=== PATIENT | female | born 1975 | race Caucasian/White ===

== ENCOUNTER 2023-01-20 11:02 | Outpatient (AMB) | payer OTHER, SELFPAY ==
--- NOTE | 2023-01-20 11:16 | A.OFFVIS_ITS ---
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 States she has intermittent pain on her left IP joint. States she thinks its a cyst that started to grow. She has no lumps but has discomfort with gripping and pinching motion. Denies recent injury, numbness, tingling or locking of fingers. Hx of cyst removal in right pinky about 10 yrs ago. 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 She complains of pain in the ulnar aspect of the left thumb IP, worse with pinching or gripping activities. She says her pain began last summer after excess gardening. She says This has not been bothering her lately as she has not been in the garden She denies feeling a lump there, however she wants to know if this may be a cyst as she has a hx of cyst removal from her right small finger in ~2012. She denies any numbness, tingling, locking, or injury. 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 Review of Systems Const All systems reviewed & are unremarkable except as noted in HPI and below Physical Exam Vital Signs: BMI result Body Mass Index 21.3 Const General: cooperative, healthy appearing and no acute distress Orientation/consciousness: patient oriented x3 HEENT Head: Yes normocephalic and Yes atraumatic Eyes EOM: EOMs intact bilaterally Resp Effort & Inspection: normal respiratory effort and able to speak in complete sentences Cardio Jugular venous distension: no JVD Skin General skin exam: turgor normal Rashes: no rashes Neuro General: patient oriented x3 Extrem Other: Evaluation of Left Upper Extremity: The patient is alert, oriented, and in no acute distress Neuro: Median, Ulnar, Radial nerves motor and sensory intact and sensation is normal to the tips of all digits Vascular: Cap refill brisk ROM: She can make a fist and extend all her digits No locking or catching. Skin: No lacerations or abrasions. General: No Ecchymosis. No Erythema or evidence of infection. Regarding her left thumb: She showed me that she was having most of her symptoms along the ulnar aspect of the left thumb IP joint. I did not appreciate any cyst or other masses in this area, and neither did she. The IP joint has good active flexion and extension without pain. No locking or catching. The radial and ulnar collateral ligaments of the IP joint are both stable and she had no pain with testing. Not particularly tender along the ulnar aspect of the IP joint of the thumb today, though she notes that the ulnar aspect of the IP joint of the thumb is what was hurting her when she was most symptomatic during the summer. Psych Appearance: grossly normal Affect: normal affect Attitude: cooperative Assessment & Plan Assessment & Plan (1) Pain of left thumb: Code(s): M79.645 - Pain in left finger(s) Plan Assessment & Plan: 1. Left thumb pain in ulnar aspect of IP joint This occurred after some significant gardening in the spring/summer of 2022 The symptoms have mostly resolved at this time. She was concerned that she could have had a a ganglion cyst in this area, as it felt similar to the way her right small finger PIP joint felt when she was developing a cyst. I do not appreciate any cyst today. I educated her about this condition As it looks like her symptoms have improved considerably, and we are heading into winter we talked about activity modification and avoiding heavy pinching or gripping activities that could aggravate this condition. She is happy with this plan. Also when she starts gardening she is similarly going to try to avoid heavy or repetitive pinching and gripping activities without breaking them up over several days If she returns we will likely obtain radiographs three views of the left hand with attention to the thumb IP joint She is happy with this plan. Scribed for Nerissa Marti MD by Mike Medina, medical staff services coordinator, on 01/20/23 at , EST. Coding Level of Care Code New Pt Level 3 (99131) Diagnoses Pain of left thumb M79.645
[2023-01-20 11:23] VITALS: BMI 21.3
== END 2023-01-20 12:00 | disposition home or self-care (01) ==
PROVIDERS: Visit Provider Orthopaedic Surgery
DX: M79.645 Pain in left finger(s) (principal)
CPT/HCPCS: 99203

== ENCOUNTER → 2023-01-20 11:02 | Outpatient (BNVA) | payer OTHER, SELFPAY | PROVIDERS: Visit Provider Orthopaedic Surgery ==